=== PATIENT | male | born 1995 | race Hispanic/Latino ===

== ENCOUNTER 2024-03-01 19:24 | Inpatient (IN) | payer OTHER ==
[~2024-03-01] VITALS: Ht 170.2 cm; Wt 66.6 kg
[2024-03-01] MEDS: ONDANSETRON ODT 4MG TAB SL STA (20:04)
[2024-03-01] MEDS: FAMOTIDINE 20MG TAB PO STA (20:04)
[2024-03-01] MEDS: MAG/ALUM/SIMETH 30 ML UDCUP PO ONE (20:05)
[2024-03-01 20:47] LABS: BASOPHILS # (AUTO) 0.04 K/uL (0.00-0.20); BASOPHILS % (AUTO) 0.2 % (0.0-5.0); EOSINOPHILS # (AUTO) 1.02 K/uL (0.00-0.70); EOSINOPHILS % (AUTO) 5.5 % (0.0-8.0); HEMATOCRIT 44.7 % (42-54); IMMATURE GRANULOCYTE ABSOLUTE 0.09 K/uL (0-1); LYMPHOCYTES # (AUTO) 1.6 K/uL (1.0-4.8); LYMPHOCYTES % (AUTO) 8.5 % (21.0-51.0); MEAN CORPUSCULAR HEMOGLOBIN 30.2 pg (27.0-33.0); MEAN CORPUSCULAR HGB CONC 34.7 g/dL (32.0-36.0); MONOCYTES # (AUTO) 1.1 K/uL (0.1-1.0); NEUTROPHILS # (AUTO) 14.6 K/uL (1.8-7.7); NEUTROPHILS % (AUTO) 79.3 % (40.0-77.0); PLATELET COUNT (AUTO) 260 K/uL (130-400); RED BLOOD CELL COUNT(AUTO) 5.14 MIL/uL (4.50-6.20); RED CELL DISTRIBUTION WIDTH 11.9 % (11.0-15.5); WHITE BLOOD COUNT (AUTO) 18.4 K/uL (4.8-10.8)
[2024-03-01 20:58] LABS: POTASSIUM 3.4 mmol/L (3.5-5.1)
[2024-03-01 21:02] LABS: ALBUMIN 4.8 g/dL (3.5-5.0); BILIRUBIN,TOTAL 0.9 mg/dL (0.2-1.0); TOTAL PROTEIN, SERUM 8.6 g/dL (6.0-8.3)
[2024-03-01] MEDS: 0.9%NACL 1000ML 1,000 ML IV STA (21:28)
[2024-03-01] MEDS: MORPHINE 2 MG SYG IVP STA ×2 (21:28→23:27)
[2024-03-01] MEDS ORDERED: IOHEXOL 350 MG/ML 100ML INFUS..BTL IV ONE (21:37)
[2024-03-02] VITALS (29 sets, daily range): BP systolic 99–137; BP diastolic 52–93; PULSE 57–117; RESP 12–19; O2SAT 97–100
[2024-03-02] MEDS ORDERED: ACETAMINOPHEN 325 MG TAB PO PRN ×3
[2024-03-02] MEDS ORDERED: ONDANSETRON 4MG INJ IV PRN
[2024-03-02] MEDS ORDERED: LACTULOSE 20 GM/30 ML UDCUP PO PRN
[2024-03-02] MEDS ORDERED: KETOROLAC 15MG/ML VIAL (15MG/ML) IV PRN
[2024-03-02] MEDS ORDERED: NITROGLYCERIN 0.4 MG SL TAB SL PRN
[2024-03-02] MEDS ORDERED: GLUCAGON 1MG KIT 1 MG ML IM PRN
[2024-03-02] MEDS ORDERED: MAGNESIUM 2GM PREMIX 50ML 50 ML IV PRN
[2024-03-02] MEDS ORDERED: POTASSIUM CHLORIDE 10MEQ/100ML 100 ML IV PRN
[2024-03-02] MEDS ORDERED: FAMOTIDINE 20MG VIAL IV PRN
[2024-03-02] MEDS ORDERED: POTASSIUM CHLORIDE 10% ELIXIR 20 MEQ/15 ML UDCUP PO PRN
[2024-03-02] MEDS ORDERED: HYDRALAZINE 20MG/ML VIAL IV PRN
[2024-03-02] MEDS ORDERED: GUAIFENESIN-DM 200/20 MG 10 ML PO PRN
[2024-03-02] MEDS ORDERED: DiphenhydrAMINE HCL 50 MG/ML VIAL IV PRN
[2024-03-02] MEDS ORDERED: DEXTROSE 50%-WATER 50 ML DISP.SYRIN IV PRN
[2024-03-02] MEDS ORDERED: MAG/ALUM/SIMETH 30 ML UDCUP PO PRN
[2024-03-02] MEDS ORDERED: ZOLPIDEM TARTRATE 5 MG TAB PO PRN
[2024-03-02] MEDS: 0.9%NACL 1000ML 1,000 ML IV SCH (00:17)
[2024-03-02] MEDS: ZOSYN 3.375GM +NS 50ML IV SCH (00:17)
[2024-03-02] MEDS: KCL 20 MEQ ERTAB PO PRN (00:18)
[2024-03-02] MEDS: ZOSYN 3.375GM+NS 50ML 50 ML IV SCH (04:44)
[2024-03-02 06:53] LABS: BASOPHILS # (AUTO) 0.02 K/uL (0.00-0.20); BASOPHILS % (AUTO) 0.2 % (0.0-5.0); EOSINOPHILS # (AUTO) 0.82 K/uL (0.00-0.70); EOSINOPHILS % (AUTO) 6.4 % (0.0-8.0); HEMATOCRIT 43.6 % (42-54); IMMATURE GRANULOCYTE ABSOLUTE 0.04 K/uL (0-1); LYMPHOCYTES % (AUTO) 15.6 % (21.0-51.0); MEAN CORPUSCULAR HEMOGLOBIN 29.8 pg (27.0-33.0); MEAN CORPUSCULAR HGB CONC 33.7 g/dL (32.0-36.0); MEAN CORPUSCULAR VOLUME 88.4 fL (79-99); MONOCYTES # (AUTO) 1.1 K/uL (0.1-1.0); MONOCYTES % (AUTO) 8.6 % (3.0-13.0); NEUTROPHILS # (AUTO) 8.8 K/uL (1.8-7.7); NEUTROPHILS % (AUTO) 68.9 % (40.0-77.0); PLATELET COUNT (AUTO) 233 K/uL (130-400); RED BLOOD CELL COUNT(AUTO) 4.93 MIL/uL (4.50-6.20); WHITE BLOOD COUNT (AUTO) 12.7 K/uL (4.8-10.8)
[2024-03-02 07:24] LABS: ALBUMIN 3.8 g/dL (3.5-5.0); BILIRUBIN,TOTAL 1.5 mg/dL (0.2-1.0); CREATININE 1.1 mg/dL (0.5-1.3); MAGNESIUM 1.8 mg/dL (1.80-2.40); POTASSIUM 4.1 mmol/L (3.5-5.1); TOTAL PROTEIN, SERUM 7.2 g/dL (6.0-8.3)
[2024-03-02 07:27] LABS: HEMOGLOBIN A1C 5.3 % (4.0-6.0)
[2024-03-02] MEDS: INSULIN HUMULIN R 100 UNIT/ML 3ML SQ SCH (07:30)
[2024-03-02] MEDS: HEPARIN 5,000 UNIT VIAL SQ SCH (09:00)
[2024-03-02] MEDS: FAMOTIDINE 20MG VIAL IV SCH (09:38)
[2024-03-02] MEDS: BUPIVACAINE/EPI/PF 0.25% 30ML VIAL IJ ONE ×4 (10:47→12:45)
[2024-03-02] MEDS: BUPIVACAINE/EPI/PF 0.25% 10ML VIAL IJ ONE (11:00)
[2024-03-02] MEDS ORDERED: POTASSIUM CHLORIDE 10MEQ SR TAB PO PRN (11:00)
[2024-03-02] MEDS ORDERED: MIDAZOLAM HCL 1 MG/ML 2ML VIAL ONE (11:55)
[2024-03-02] MEDS ORDERED: PROPOFOL 10 MG/ML 20ML VIAL IV ONE (11:55)
[2024-03-02] MEDS ORDERED: SUCCINYLCHOLINE CHLORIDE 20 MG/ML 10 ML VIAL ONE (11:55)
[2024-03-02] MEDS ORDERED: FENTANYL CITRATE PF 50 MCG/1 ML 2ML VIAL ONE ×2 (11:56→12:44)
[2024-03-02] MEDS ORDERED: ROCURONIUM BROMIDE 10MG/1ML 5ML VL ONE (11:56)
[2024-03-02] MEDS ORDERED: GLYCOPYRROLATE 0.2 MG/ML 5 ML VIAL ONE (12:43)
[2024-03-02] MEDS ORDERED: ONDANSETRON 4MG INJ ONE (12:43)
[2024-03-02] MEDS ORDERED: NEOSTIGMINE METHYLSULFATE 1MG/ML IV ONE (12:43)
[2024-03-02] MEDS ORDERED: DEXAMETHASONE SOD PHOSPHATE 10MG/ML 1ML VIAL ONE (12:57)
[2024-03-02] MEDS: KETOROLAC 30MG VIAL (30MG/ML) ONE (13:46)
[2024-03-02] MEDS: MEPERIDINE-PF 25 MG/ML SYG ONE ×2 (13:46→13:47)
[2024-03-02] MEDS: ONDANSETRON 4MG INJ ONE (13:47)
[2024-03-02] MEDS: FENTANYL CITRATE PF 50 MCG/1 ML 2ML VIAL ONE (13:48)
[2024-03-02] MEDS: MORPHINE 2 MG SYG IVP PRN (16:15)
[2024-03-02] MEDS: TRAMADOL HCL 50 MG TABLET PO PRN (19:58)
[2024-03-02] MEDS: SIMETHICONE 80 MG TAB.CHEW PO SCH (21:39)
[2024-03-03 00:24] VITALS: BP 125/72; PULSE 80; RESP 19
[2024-03-03 05:20] VITALS: BP 102/46; PULSE 57; RESP 17
[2024-03-03 08:00] VITALS: BP 112/61; PULSE 72; RESP 16; O2SAT 98
[2024-03-03 12:00] VITALS: BP 109/69; PULSE 67; RESP 18
[2024-03-03 13:04] LABS: HEMATOCRIT 41.7 % (42-54); MEAN CORPUSCULAR HEMOGLOBIN 30.7 pg (27.0-33.0); MEAN CORPUSCULAR HGB CONC 34.3 g/dL (32.0-36.0); MEAN CORPUSCULAR VOLUME 89.5 fL (79-99); RED BLOOD CELL COUNT(AUTO) 4.66 MIL/uL (4.50-6.20); RED CELL DISTRIBUTION WIDTH 11.9 % (11.0-15.5)
[2024-03-03 13:12] LABS: CREATININE 1.1 mg/dL (0.5-1.3); POTASSIUM 3.3 mmol/L (3.5-5.1)
[2024-03-03] MEDS: LIDOCAINE 4% ADH..PATCH TP ONE (13:20)
[2024-03-03 16:00] VITALS: BP 113/66; PULSE 74; RESP 18
== END 2024-03-03 19:45 | disposition home or self-care (01) | DRG 398 ==
LOC: EDH 19:24 → EDHIP 19:25 → 3DH 03-02 00:11
PROVIDERS: ADMIT Hospitalist; ATTEND Hospitalist
PROC: 0DTJ4ZZ Resection of Appendix, Percutaneous Endoscopic Approach (ICD-10-PCS; principal; 2024-03-02 12:00)
DX: K35.80 Unspecified acute appendicitis (principal); E87.1 Hypo-osmolality and hyponatremia; R17 Unspecified jaundice; I10 Essential (primary) hypertension; E87.6 Hypokalemia; E87.8 Other disorders of electrolyte and fluid balance, not elsewhere classified; K29.70 Gastritis, unspecified, without bleeding; K25.9 Gastric ulcer, unspecified as acute or chronic, without hemorrhage or perforation; K38.1 Appendicular concretions; Z87.11 Personal history of peptic ulcer disease; Z87.891 Personal history of nicotine dependence
CPT/HCPCS: 36415; 74177; 80048; 80053; 82140; 82550; 82948; 83036; 83605; 83690; 83735; 83880; 84145; 85025; 85027; 88304; 96375; A4344; G0378; J0330; J1100; J1644; J1885; J2175; J2250; J2270; J2405; J2543; J2704; J2710; J3010; J3490; J7030; Q9967; A4216; A4222; A4223; A4600; A4649; C1713; G0168; G8980-CH; G8983-CI